=== PATIENT | female | born 1945 | race African-American/Black ===

== ENCOUNTER 2024-05-18 13:59 | Outpatient (AMB) | payer MEDICARE, MEDICAID, SELFPAY ==
--- NOTE | 2024-05-18 14:13 | HO.NEPHOV ---
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 She is not a diabetic but has history of coronary artery disease without any history of carotid stenosis, CVA, CHAVA or PND. Her blood pressure has been well controlled. She does not have any new bone or back pain. She has history of MARIANO in the past. She has a brother in [place] who has CKD. Her last serum creatinine was 1.57. She denies any nausea vomiting, diarrhea, pedal edema, dizziness, chest pain, shortness of breath, proximal nocturnal dyspnea or orthopnea. She denies taking any nonsteroidal anti-inflammatories. [facility] Medical History (Updated 05/18/24 @ 14:27 by Gus Fabian MD) Polycythemia Osteoarthritis WINDY (obstructive sleep apnea) Mixed anxiety and depressive disorder Hypothyroidism Essential (primary) hypertension Cor athrscl-uns vessel Cardiac murmur Acute ST segment elevation myocardial infarction Surgical History (Updated 05/18/24 @ 09:03 by Holli Walker MA) H/O hemorrhoidectomy Family History (Updated 05/18/24 @ 14:22 by Holli Walker MA) Mother Breast cancer Father Brain cancer Daughter Hypertension Son Hypertension Sister Hypertension Brother Hypertension Social History (Updated 05/18/24 @ 14:22 by Holli Walker MA) Alcohol intake: never Patient Tobacco Use Status: Former Tobacco user Use of substances other than those prescribed or required for medical reasons: No Review of Systems Const All systems reviewed & are unremarkable except as noted in HPI and below Physical Exam Vital Signs: Last Vital Signs Pulse 64 05/18/24 14:15 BP 124/70 05/18/24 14:15 Pulse Ox 98 05/18/24 14:15 Oxygen Delivery Method Room Air 05/18/24 14:15 BMI result Body Mass Index 34.6 Const General: comfortable and no acute distress Orientation/consciousness: patient oriented x3 HEENT Head: Yes normocephalic Mouth: Normal oral and palatal mucosa present Eyes EOM: EOMs intact bilaterally Neck Neck: Yes supple Resp Auscultation: clear to auscultation bilaterally Cardio Jugular venous distension: no JVD Rate: regular rate GI Palpation (GI): Soft to palpation Auscultation: normal bowel sounds General: Yes no CVA tenderness Back/Spine/Pelvis Back: no CVA tenderness Skin General skin exam: no rashes or lesions noted Neuro General: patient oriented x3 and moves all extremities Extrem General: Yes no pedal edema Results Reviewed Nephrology Results: No Data to Display Assessment & Plan Assessment & Plan (1) Renal artery stenosis, [place]: Code(s): I70.1 - Atherosclerosis of renal artery Category: Medical (2) Hypertension: Code(s): I10 - Essential (primary) hypertension Category: Medical Qualifiers: Hypertension type: renovascular hypertension Qualified Code(s): I15.0 - Renovascular hypertension (3) CKD stage 3a, GFR 45-59 ml/min: Code(s): N18.31 - Chronic kidney disease, stage 3a Category: Medical Plan Kidney has CKD stage 3 due to vascular disease. She has right renal artery stenosis by Doppler. Her blood pressure is at goal. Her serum creatinine is stable. She avoids nonsteroidal anti-inflammatories and maintain good hydration. She is on Farxiga. Her electrolytes are acceptable. She is on spironolactone. I plan to order Doppler of her renal arteries after next visit for follow-up of her renal artery stenosis. I did not make any medication changes today. All questions answered. Follow-up appointment given. Orders: Orders Electrolytes Today I15.0 - Renovascular hypertension, I70.1 - Atherosclerosis of renal artery, N18.31 - Chronic kidney disease, stage 3a Blood Urea Nitrogen Today I15.0 - Renovascular hypertension, I70.1 - Atherosclerosis of renal artery, N18.31 - Chronic kidney disease, stage 3a Calcium Today I15.0 - Renovascular hypertension, I70.1 - Atherosclerosis of renal artery, N18.31 - Chronic kidney disease, stage 3a Creatinine Today I15.0 - Renovascular hypertension, I70.1 - Atherosclerosis of renal artery, N18.31 - Chronic kidney disease, stage 3a Vitamin D 25-OH Total Today I15.0 - Renovascular hypertension, I70.1 - Atherosclerosis of renal artery, N18.31 - Chronic kidney disease, stage 3a Parathyroid Hormone Intact Today I15.0 - Renovascular hypertension, I70.1 - Atherosclerosis of renal artery, N18.31 - Chronic kidney disease, stage 3a Coding Level of Care Code Est Pt Level 4 (43768) Diagnoses Renal artery stenosis, [place] I70.1 Renovascular hypertension I15.0 Hypertension type: renovascular hypertension CKD stage 3a, GFR 45-59 ml/min N18.31
[2024-05-18 14:15] VITALS: BP 124/70; PULSE 64; O2SAT 98; BMI 34.6
== END 2024-05-18 14:52 | disposition home or self-care (01) ==
PROVIDERS: PCP Internal Medicine; Visit Provider Internal Medicine Nephrology
DX: I70.1 Atherosclerosis of renal artery (principal); I12.9 Hypertensive chronic kidney disease with stage 1 through stage 4 chronic kidney disease, or unspecified chronic kidney disease; N18.31 Chronic kidney disease, stage 3a
CPT/HCPCS: 99214

== ENCOUNTER → 2024-05-18 13:59 | Outpatient (BNVA) | payer MEDICARE, MEDICAID, SELFPAY | PROVIDERS: PCP Internal Medicine; Visit Provider Internal Medicine Nephrology | DX: I15.0 Renovascular hypertension (principal); I25.10 Atherosclerotic heart disease of native coronary artery without angina pectoris; I70.1 Atherosclerosis of renal artery; N18.31 Chronic kidney disease, stage 3a | CPT/HCPCS: 99212 ==

== ENCOUNTER 2024-09-09 13:32 | Outpatient (AMB) | payer MEDICARE, MEDICAID, SELFPAY ==
--- NOTE | 2024-09-09 13:49 | HO.NEPHOV ---
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 She is not a diabetic but has history of coronary artery disease without any history of carotid stenosis, CVA, CHAVA or PND. Her blood pressure is labile. She does not have any new bone or back pain. She has history of MARIANO in the past. She has a brother in [place] who has CKD. Her last serum creatinine was 1.57. She denies any nausea vomiting, diarrhea, pedal edema, dizziness, chest pain, shortness of breath, proximal nocturnal dyspnea or orthopnea. She denies taking any nonsteroidal anti-inflammatories. [facility] Medical History (Updated 07/02/24 @ 17:11 by Gus Fabian MD) Polycythemia Osteoarthritis WINDY (obstructive sleep apnea) Mixed anxiety and depressive disorder Hypothyroidism Essential (primary) hypertension Cor athrscl-uns vessel Cardiac murmur Acute ST segment elevation myocardial infarction Surgical History H/O hemorrhoidectomy Family History Mother Breast cancer Father Brain cancer Daughter Hypertension Son Hypertension Sister Hypertension Brother Hypertension Social History Alcohol intake: never Patient Tobacco Use Status: Former Tobacco user Review of Systems Const All systems reviewed & are unremarkable except as noted in HPI and below Physical Exam Vital Signs: Last Vital Signs Pulse 83 09/09/24 13:50 BP 160/90 H 09/09/24 13:50 Pulse Ox 99 09/09/24 13:50 Oxygen Delivery Method Room Air 09/09/24 13:50 BMI result Body Mass Index 35.9 Const General: comfortable and no acute distress Orientation/consciousness: patient oriented x3 HEENT Head: Yes normocephalic Mouth: Normal oral and palatal mucosa present Eyes EOM: EOMs intact bilaterally Neck Neck: Yes supple Resp Auscultation: clear to auscultation bilaterally Cardio Jugular venous distension: no JVD Rate: regular rate GI Palpation (GI): Soft to palpation Auscultation: normal bowel sounds General: Yes no CVA tenderness Back/Spine/Pelvis Back: no CVA tenderness Skin General skin exam: no rashes or lesions noted Neuro General: patient oriented x3 and moves all extremities Extrem General: Yes no pedal edema Results Reviewed Nephrology Results: No Data to Display Assessment & Plan Assessment & Plan (1) CKD stage 3a, GFR 45-59 ml/min: Code(s): N18.31 - Chronic kidney disease, stage 3a Category: Medical (2) Renovascular hypertension: Code(s): I15.0 - Renovascular hypertension Category: Medical (3) Renal artery stenosis, [place]: Code(s): I70.1 - Atherosclerosis of renal artery Category: Medical Plan Mary has CKD stage 3 due to vascular disease. She has right renal artery stenosis by Doppler. Her blood pressure is at labile. Her serum creatinine had been stable. She avoids nonsteroidal anti-inflammatories and maintain good hydration. She is on Farxiga. Her electrolytes are acceptable. She is on spironolactone. I plan to order Doppler of her renal arteries after next visit for follow-up of her renal artery stenosis. I did not make any medication changes today. All questions answered. Follow-up appointment given Orders: Orders Blood Urea Nitrogen 1 Month I15.0 - Renovascular hypertension, I70.1 - Atherosclerosis of renal artery, N18.31 - Chronic kidney disease, stage 3a Electrolytes 1 Month I15.0 - Renovascular hypertension, I70.1 - Atherosclerosis of renal artery, N18.31 - Chronic kidney disease, stage 3a Creatinine 1 Month I15.0 - Renovascular hypertension, I70.1 - Atherosclerosis of renal artery, N18.31 - Chronic kidney disease, stage 3a Coding Level of Care Code Est Pt Level 4 (21370) Diagnoses CKD stage 3a, GFR 45-59 ml/min N18.31 Renovascular hypertension I15.0 Renal artery stenosis, [place] I70.1
[2024-09-09 13:50] VITALS: BP 150/90; PULSE 83; O2SAT 99; BMI 35.9
== END 2024-09-09 14:23 | disposition home or self-care (01) ==
PROVIDERS: PCP Internal Medicine; Visit Provider Internal Medicine Nephrology
DX: I12.9 Hypertensive chronic kidney disease with stage 1 through stage 4 chronic kidney disease, or unspecified chronic kidney disease (principal); N18.31 Chronic kidney disease, stage 3a; I70.1 Atherosclerosis of renal artery
CPT/HCPCS: 99214

== ENCOUNTER → 2024-09-09 13:32 | Outpatient (BNVA) | payer MEDICARE, MEDICAID, SELFPAY | PROVIDERS: PCP Internal Medicine; Visit Provider Internal Medicine Nephrology | DX: I15.0 Renovascular hypertension (principal); N18.31 Chronic kidney disease, stage 3a; I70.1 Atherosclerosis of renal artery | CPT/HCPCS: 99212 ==

== ENCOUNTER 2024-10-07 13:31 | Outpatient (AMB) | payer MEDICARE, MEDICAID, SELFPAY ==
--- NOTE | 2024-10-07 13:39 | HO.NEPHOV_ITS ---
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 She is not a diabetic but has history of coronary artery disease without any history of carotid stenosis, CVA, CHAVA or PND. Her blood pressure is still labile, but better. She does not have any new bone or back pain. She has history of MARIANO in the past. She has a brother in [place] who has ? CKD. Her last serum creatinine has stable . She denies any nausea vomiting, diarrhea, pedal edema, dizziness, chest pain, shortness of breath, proximal nocturnal dyspnea or orthopnea. She denies taking any nonsteroidal anti-inflammatories. [facility] Medical History (Updated 07/02/24 @ 17:11 by Gus Fabian MD) Polycythemia Osteoarthritis WINDY (obstructive sleep apnea) Mixed anxiety and depressive disorder Hypothyroidism Essential (primary) hypertension Cor athrscl-uns vessel Cardiac murmur Acute ST segment elevation myocardial infarction Surgical History H/O hemorrhoidectomy Family History Mother Breast cancer Father Brain cancer Daughter Hypertension Son Hypertension Sister Hypertension Brother Hypertension Social History Alcohol intake: never Patient Tobacco Use Status: Former Tobacco user Review of Systems Const All systems reviewed & are unremarkable except as noted in HPI and below Physical Exam Vital Signs: Last Vital Signs Pulse 78 10/07/24 13:44 BP 180/90 H 10/07/24 13:44 Pulse Ox 97 10/07/24 13:44 Oxygen Delivery Method Room Air 10/07/24 13:44 BMI result Body Mass Index 35.7 Const General: comfortable and no acute distress Orientation/consciousness: patient oriented x3 HEENT Head: Yes normocephalic Mouth: Normal oral and palatal mucosa present Eyes EOM: EOMs intact bilaterally Neck Neck: Yes supple Resp Auscultation: clear to auscultation bilaterally Cardio Jugular venous distension: no JVD Rate: regular rate GI Palpation (GI): Soft to palpation Auscultation: normal bowel sounds General: Yes no CVA tenderness Back/Spine/Pelvis Back: no CVA tenderness Skin General skin exam: no rashes or lesions noted Neuro General: patient oriented x3 and moves all extremities Extrem General: Yes no pedal edema Results Reviewed Nephrology Results: No Data to Display Assessment & Plan Assessment & Plan (1) CKD stage 3a, GFR 45-59 ml/min: Code(s): N18.31 - Chronic kidney disease, stage 3a Category: Medical (2) Renovascular hypertension: Code(s): I15.0 - Renovascular hypertension Category: Medical Plan Mary has CKD stage 3 due to vascular disease. She has right renal artery stenosis by Doppler. Her blood pressure is at labile. Her serum creatinine had been stable. She avoids nonsteroidal anti-inflammatories and maintain good hydration. She is on Farxiga. Her electrolytes are acceptable. She is on spironolactone. I started her on Amlodipine 5 mg daily. ( She has CAD & had PC I). I ordered Doppler of her renal arteries to follow-up of her renal artery stenosis. I did not make any other medication changes today. All questions answered. Follow-up appointment given Orders: Orders US renal doppler 2 Months I15.0 - Renovascular hypertension Creatinine 3 Months I15.0 - Renovascular hypertension, N18.31 - Chronic kidney disease, stage 3a Electrolytes 3 Months I15.0 - Renovascular hypertension, N18.31 - Chronic kidney disease, stage 3a Blood Urea Nitrogen 3 Months I15.0 - Renovascular hypertension, N18.31 - Chronic kidney disease, stage 3a Medications: New amlodipine 5 mg PO DAILY 30 tabs 11RF Coding Level of Care Code Est Pt Level 4 (13977) Diagnoses CKD stage 3a, GFR 45-59 ml/min N18.31 Renovascular hypertension I15.0
[2024-10-07 13:44] VITALS: BP 140/90; PULSE 78; O2SAT 97; BMI 35.7
== END 2024-10-07 14:16 | disposition home or self-care (01) ==
PROVIDERS: PCP Internal Medicine; Visit Provider Internal Medicine Nephrology
DX: I12.9 Hypertensive chronic kidney disease with stage 1 through stage 4 chronic kidney disease, or unspecified chronic kidney disease (principal); N18.31 Chronic kidney disease, stage 3a
CPT/HCPCS: 99214

== ENCOUNTER → 2024-10-07 13:31 | Outpatient (BNVA) | payer MEDICARE, MEDICAID, SELFPAY | PROVIDERS: PCP Internal Medicine; Visit Provider Internal Medicine Nephrology | DX: I15.0 Renovascular hypertension (principal); N18.31 Chronic kidney disease, stage 3a | CPT/HCPCS: 99212 ==

== ENCOUNTER 2024-12-08 09:50 | Outpatient (REF) | payer MEDICARE, MEDICAID, SELFPAY ==
--- NOTE | ~2024-12-08 | US_ITS ---
CLINICAL HISTORY: I15.0 - Renovascular hypertension US renal duplex ultrasound Comparison: None Technique: Real time duplex ultrasound imaging was performed by the auto club safety program coordinator. Multiple provider service representative static images were saved for review. Findings: Aorta: 59 cm/s. Right kidney: Main renal artery peak systolic velocities: Proximal: 86 cm/s Mid: 90 cm/s Distal: 97 cm/s Renal to aortic ratio: 1.7 Left kidney: Main renal artery peak systolic velocities: Proximal: 70 to cm/s Mid: 90 cm/s Distal: 215 cm/s Renal to aortic ratio: 3.7 Bilateral renal veins patent. Impression: Severe left renal artery stenosis US renal Comparison: None Findings: Right kidney 10.7 cm length. Left kidney 10.2 cm length. Multiple bilateral renal cysts noted. Largest on right 3.2 cm upper pole. Largest on left 6.0 cm lower pole. No significant focal abnormality. No bilateral hydronephrosis. Normal bilateral renal echogenicity. Impression: No significant abnormalities. This document has been electronically signed by: Anson Guillen MD on 12/08/2024 21:25:12
--- OUTSIDE RECORDS SUMMARY | 2024-12-08 10:14 | XMS_ITS | Clinical Summary ---
Author Organization [facility] Address [address] [place] [address] Phone Care Team Providers Care Devil Tender Name Role Phone Chen Wan MD Primary Care Provider + Allergies Active Allergy Reactions Criticality Noted Date Comments Thiopental 11/15/2022 Medications aspirin (ST ELLIOTT) 81 MG EC tablet Take 81 mg by mouth 1 (one) time each day Active cyancobalamine (VITAMIN B-12) 250 MCG tablet Take 250 mcg by mouth 1 (one) time each day Active amLODIPine (NORVASC) 10 MG tablet Take 10 mg by mouth 1 (one) time each day Active amiodarone (PACERONE) 200 MG tablet Take 400 mg by mouth 1 (one) time each day Active atorvastatin (LIPITOR) 80 MG tablet Take 80 mg by mouth 1 (one) time each day Active hydroxyurea (HYDREA) 500 MG capsule Take by mouth 1 (one) time each day Take at the same time each day. Active levothyroxine (SYNTHROID, LEVOTHROID) 75 MCG tablet Take 75 mcg by mouth 1 (one) time each day Active loratadine (CLARITIN) 10 MG tablet Take 10 mg by mouth 1 (one) time each day Active metoprolol succinate XL (TOPROL-XL) 100 MG 24 hr tablet Take 150 mg by mouth 1 (one) time each day Do not crush or chew. Active nitroglycerin (NITROSTAT) 0.[address] 0.4 mg under the tongue every 5 (five) minutes if needed for chest pain Active pantoprazole (PROTONIX) 40 MG EC tablet Take 40 mg by mouth 1 (one) time each day before breakfast Do not crush, chew, or split. Active isosorbide mononitrate (IMDUR) 60 MG 24 hr tablet Take 60 mg by mouth 1 (one) time each day 3 Active D3 Super Strength 50 MCG (2000 UT) capsule Take 1 tablet by mouth 1 (one) time each day 3 Active Active Problems Problem Noted Date Diagnosed Date Cardiac murmur 01/24/2023 Coronary arteriosclerosis 01/24/2023 Stage 3b chronic kidney disease 12/24/2022 Hypertension 12/24/2022 Chronic kidney disease 11/15/2022 Resolved Problems Problem Noted Date Diagnosed Date Resolved Date Abnormal findings on diagnos tic imaging of breast 01/24/2023 01/24/2023 Hypothyroidism 01/24/2023 01/24/2023 Mixed anxiety and depressive disorder 01/24/2023 01/24/2023 Obstructive sleep apnea syndrome 01/24/2023 01/24/2023 Osteoarthritis 01/24/2023 01/24/2023 Polycythemia vera 01/24/2023 01/24/2023 Severe obesity 01/24/2023 01/24/[address] segment elevation m yocardial infarction 09/27/2015 01/24/2023 Immunizations Name Administration Dates Next Due DTaP 12/29/2017 Hep A, Unspecified 11/03/2018,09/02/2018 HiB 12/29/2017,06/26/2017,04/24/2017 ,01/21/2017 Influenza Whole 07/20/2020,11/03/2018,06/26/2017 Influenza, Unspecified 10/11/2022,08/21/2021,05/2021,08/11/2018 MMR 09/30/2017 Pfizer SARS-COV-2 08/21/2021,12/11/2020,11/20/19 21 Pneumococcal Conjugate 13-Valent 08/11/2018,09/0 04/2017,04/24/2017,01/21/2017 Pneumococcal Polysaccharide 02/19/2022 SARS-CoV-2, Unspecified 02/19/2022 Shingrix 07/01/2022 Tdap 10/11/2022 Social History Tobacco Use Types Packs/Day Years Used Date Smoking Tobacco: Never Smokeless Tobacco: Never Tobacco Cessation:Counseling Given: Not Answered Alcohol Use Standard Drinks/Week Comments Yes 0 (1 standard drink = 0.6 oz pur e alcohol) Comments Unknown Sex and Gender Information Value Date Recorded Sex Assigned at Not on file Legal Sex Female 10:06 AM EST Gender Identity Not on file Sexual Orientation Not on file Last Filed Vital Signs Vital Sign Reading Time Taken Comments Blood Pressure 130/60 01/27/2023 1:52 PM EDT Pulse 52 01/27/2023 1:52 PM EDT Temperature - - Respiratory Rate - - Oxygen Saturation - - Inhaled Oxygen Concentration - - Weight 93 kg (205 lb) 01/27/2023 1:52 PM EDT Height - - Body Mass Index - - Plan of Treatment Health Maintenance Due Date Last Done Comments Influenza Vaccine (#1) 2024 , 08/21/2021, 07/27/2021, Additional history exists Pneumococcal Vaccine: 65+ Years Completed 02/19/2022, 08/11/2018, 06/26/2017, Additional history exists Hepatitis B Vaccine Aged Out No longe r eligible based on patient's age to complete this topic Insurance [place] Care Teams Devil Tender Relationship Specialty Start Date End Date Chen Wan MD [facility] [address], [place] PCP - General Internal Medicine 08/28/22
== END 2024-12-08 09:51 | disposition home or self-care (01) ==
LOC: HO.US 09:50
PROVIDERS: PCP Internal Medicine; Visit Provider Internal Medicine Nephrology
DX: I15.0 Renovascular hypertension (principal)
CPT/HCPCS: 93975

== ENCOUNTER → 2024-12-08 09:52 | Outpatient (BNV) | payer MEDICARE, MEDICAID, SELFPAY | PROVIDERS: PCP Internal Medicine; Visit Provider Radiology Diagnostic Radiology | DX: I15.0 Renovascular hypertension (principal) | CPT/HCPCS: 93975 ==

== ENCOUNTER 2025-01-06 12:55 | Outpatient (AMB) | payer MEDICARE, MEDICAID, SELFPAY ==
--- NOTE | 2025-01-06 13:31 | HO.NEPHOV_ITS ---
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 She is not a diabetic but has history of coronary artery disease without any history of carotid stenosis, CVA, CHAVA or PND. Her blood pressure is still labile, but better. She does not have any new bone or back pain. She has history of MARIANO in the past. She has a brother in [place] who has ? CKD. Her last serum creatinine has stable . She denies any nausea vomiting, diarrhea, pedal edema, dizziness, chest pain, shortness of breath, proximal nocturnal dyspnea or orthopnea. She denies taking any nonsteroidal anti-inflammatories. [facility] Medical History (Updated 07/02/24 @ 17:11 by Gus Fabian MD) Polycythemia Osteoarthritis WINDY (obstructive sleep apnea) Mixed anxiety and depressive disorder Hypothyroidism Essential (primary) hypertension Cor athrscl-uns vessel Cardiac murmur Acute ST segment elevation myocardial infarction Surgical History H/O hemorrhoidectomy Family History Mother Breast cancer Father Brain cancer Daughter Hypertension Son Hypertension Sister Hypertension Brother Hypertension Social History Alcohol intake: never Patient Tobacco Use Status: Former Tobacco user Review of Systems Const All systems reviewed & are unremarkable except as noted in HPI and below Physical Exam Vital Signs: Last Vital Signs Pulse 82 01/06/25 13:32 BP 138/80 01/06/25 13:32 Pulse Ox 98 01/06/25 13:32 Oxygen Delivery Method Room Air 01/06/25 13:32 BMI result Body Mass Index 32.1 Const General: comfortable and no acute distress Orientation/consciousness: patient oriented x3 HEENT Head: Yes normocephalic Mouth: Normal oral and palatal mucosa present Eyes EOM: EOMs intact bilaterally Neck Neck: Yes supple Resp Auscultation: clear to auscultation bilaterally Cardio Jugular venous distension: no JVD Rate: regular rate GI Palpation (GI): Soft to palpation Auscultation: normal bowel sounds General: Yes no CVA tenderness Back/Spine/Pelvis Back: no CVA tenderness Skin General skin exam: no rashes or lesions noted Neuro General: patient oriented x3 and moves all extremities Extrem General: Yes no pedal edema Results Reviewed Nephrology Results: Renal US 12/08/24 Assessment & Plan Assessment & Plan (1) CKD stage 3a, GFR 45-59 ml/min: Code(s): N18.31 - Chronic kidney disease, stage 3a Category: Medical (2) Renovascular hypertension: Code(s): I15.0 - Renovascular hypertension Category: Medical (3) Renal artery stenosis, [place]: Code(s): I70.1 - Atherosclerosis of renal artery Category: Medical (4) Hypertension: Code(s): I10 - Essential (primary) hypertension Category: Medical Qualifiers: Hypertension type: renovascular hypertension Qualified Code(s): I15.0 - Renovascular hypertension Plan Mary has CKD stage 3 due to vascular disease. She has left renal artery stenosis by Doppler. Her blood pressure is at labile. Her serum creatinine had been stable. She avoids nonsteroidal anti-inflammatories and maintain good hydration. She is on Farxiga. Her electrolytes are acceptable. She is on spironolactone. I increased her Amlodipine to 7.5 mg daily. ( She has CAD & had PCI). I did not make any other medication changes today. All questions answered. Follow-up appointment given Orders: Orders Electrolytes Today I15.0 - Renovascular hypertension, I70.1 - Atherosclerosis of renal artery, N18.31 - Chronic kidney disease, stage 3a Blood Urea Nitrogen 3 Months I15.0 - Renovascular hypertension, I70.1 - Atherosclerosis of renal artery, N18.31 - Chronic kidney disease, stage 3a Creatinine 3 Months I15.0 - Renovascular hypertension, I70.1 - Atherosclerosis of renal artery, N18.31 - Chronic kidney disease, stage 3a Creatinine Today I15.0 - Renovascular hypertension, I70.1 - Atherosclerosis of renal artery, N18.31 - Chronic kidney disease, stage 3a Blood Urea Nitrogen Today I15.0 - Renovascular hypertension, I70.1 - Atherosclerosis of renal artery, N18.31 - Chronic kidney disease, stage 3a Electrolytes 3 Months I15.0 - Renovascular hypertension, I70.1 - Atherosclerosis of renal artery, N18.31 - Chronic kidney disease, stage 3a Medications: Changed From amlodipine 5 mg PO DAILY 30 tabs 11RF To amlodipine 7.5 mg (1.5 x 5 mg) PO DAILY 30 tabs 11RF Coding Level of Care Code Est Pt Level 4 (90564) Diagnoses CKD stage 3a, GFR 45-59 ml/min N18.31 Renovascular hypertension I15.0 Renal artery stenosis, [place] I70.1 Renovascular hypertension I15.0 Hypertension type: renovascular hypertension
[2025-01-06 13:32] VITALS: BP 138/80; PULSE 82; O2SAT 98; BMI 32.1
== END 2025-01-06 14:21 | disposition home or self-care (01) ==
LOC: HO.HKAS 12:55
PROVIDERS: PCP Internal Medicine; Visit Provider Internal Medicine Nephrology
DX: I12.9 Hypertensive chronic kidney disease with stage 1 through stage 4 chronic kidney disease, or unspecified chronic kidney disease (principal); N18.31 Chronic kidney disease, stage 3a; I70.1 Atherosclerosis of renal artery
CPT/HCPCS: 99214

== ENCOUNTER 2025-01-06 12:55 | Outpatient (REF) | payer MEDICARE, MEDICAID, SELFPAY ==
[2025-01-06 18:35] LABS: Anion Gap 13 (12-20); Blood Urea Nitrogen 15 mg/dL (9-16); Carbon Dioxide 25 mmol/L (22-29); Chloride 110 mmol/L (96-108); Estimated Glomerular Filt Rate 46; Potassium 4.1 mmol/L (3.3-5.1); Sodium 144 mmol/L (135-145)
== END 2025-01-06 12:56 | disposition home or self-care (01) ==
LOC: HO.HKASLDS 12:55
PROVIDERS: PCP Internal Medicine; Visit Provider Internal Medicine Nephrology
DX: I15.0 Renovascular hypertension (principal); N18.31 Chronic kidney disease, stage 3a; I70.1 Atherosclerosis of renal artery
CPT/HCPCS: 36415; 80051; 82565; 84520; 99212

== ENCOUNTER 2025-04-05 10:56 | Outpatient (REF) | payer MEDICARE, MEDICAID, SELFPAY ==
--- OUTSIDE RECORDS SUMMARY | 2025-04-05 12:27 | XMS_ITS | Clinical Summary ---
Author Organization [facility] Address [address] [place] [address] Phone Care Team Providers Care Loan Workout Officer Name Role Phone Chen Wan MD Primary [...] elevation m yocardial infarction 09/27/2015 01/24/2023 Immunizations Immunization Administration Dates Next Due DTaP 12/29/2017 Hep [...] Due Date Last Done Comments Influenza Vaccine (Season Ended) 2025 10/11/2022, 08/21/2021, 07/27/2021, Additional history exists Pneumococcal Vaccine: 50+ Years Completed 02/19/2022, 08/11/2018, 06/26/2017, Additional history exists Hepatitis B Vaccine Aged Out No longe r eligible based on patient's age to complete this topic Insurance Medicare Medicaid [place] Medicare Medicaid [place] Care Teams Loan Workout Officer Relationship Specialty Start Date End Date Chen Wan MD [facility] [address] [place], [place] PCP - General Internal Medicine 08/28/22
[2025-04-05 17:58] LABS: Anion Gap 11 (12-20); Blood Urea Nitrogen 19 mg/dL (9-16); Carbon Dioxide 28 mmol/L (22-29); Chloride 109 mmol/L (96-108); Estimated Glomerular Filt Rate 43; Potassium 4.5 mmol/L (3.3-5.1); Sodium 143 mmol/L (135-145)
== END 2025-04-05 10:57 | disposition home or self-care (01) ==
LOC: HO.HKASLDS 10:56
PROVIDERS: Visit Provider Internal Medicine Nephrology
DX: I15.0 Renovascular hypertension (principal); N18.31 Chronic kidney disease, stage 3a; I70.1 Atherosclerosis of renal artery
CPT/HCPCS: 36415; 80051; 82565; 84520

== ENCOUNTER 2025-04-07 14:46 | Outpatient (AMB) | payer MEDICARE, MEDICAID, SELFPAY ==
[2025-04-07 15:08] VITALS: BP 170/74; PULSE 93; O2SAT 97; BMI 33.7
--- NOTE | 2025-04-07 15:08 | HO.NEPHOV_ITS ---
Vital Signs 04/07/25 15:08 Height 5 ft 2 in Weight 184 lb 8 oz BMI 33.7 BP 170/74 H Blood Pressure Location Lt brachial Position Sitting Pulse 93 Pulse Source Pulse Oximeter Pulse Oximetry (%) 97 Oxygen Delivery Method Room Air Intake Visit Reasons: 3mon follow-up w/labs-LVM Assistant Branch Manager Required: No Accompanied by: Self / Same As Patient Allergies thiopental Allergy (Verified 04/07/25 15:08) Unknown HPI Comments Details: Mary in follow-up of her chronic kidney disease and hypertension. She is not a diabetic but has history of coronary artery disease without any history of carotid stenosis, CVA, CHAVA or PND. Her blood pressure is still labile, but better. She does not have any new bone or back pain. She has history of MARIANO in the past. She has a brother in [place] who has ? CKD. Her last serum creatinine has been stable . She denies any nausea vomiting, diarrhea, pedal edema, dizziness, chest pain, shortness of breath, proximal nocturnal dyspnea or orthopnea. She denies taking any nonsteroidal anti-inflammatories. [facility] Medical History (Updated 07/02/24 @ 17:11 by Gus Fabian MD) Polycythemia Osteoarthritis WINDY (obstructive sleep apnea) Mixed anxiety and depressive disorder Hypothyroidism Essential (primary) hypertension Cor athrscl-uns vessel Cardiac murmur Acute ST segment elevation myocardial infarction Surgical History H/O hemorrhoidectomy Family History Mother Breast cancer Father Brain cancer Daughter Hypertension Son Hypertension Sister Hypertension Brother Hypertension Social History Alcohol intake: never Patient Tobacco Use Status: Former Tobacco user Review of Systems Const All systems reviewed & are unremarkable except as noted in HPI and below Physical Exam Vital Signs: Last Vital Signs Pulse 93 04/07/25 15:08 BP 170/74 H 04/07/25 15:08 Pulse Ox 97 04/07/25 15:08 Oxygen Delivery Method Room Air 04/07/25 15:08 BMI result Body Mass Index 33.7 Const General: comfortable and no acute distress Orientation/consciousness: patient oriented x3 HEENT Head: Yes normocephalic Mouth: Normal oral and palatal mucosa present Eyes EOM: EOMs intact bilaterally Neck Neck: Yes supple Resp Auscultation: clear to auscultation bilaterally Cardio Jugular venous distension: no JVD Rate: regular rate GI Palpation (GI): Soft to palpation Auscultation: normal bowel sounds General: Yes no CVA tenderness Back/Spine/Pelvis Back: no CVA tenderness Skin General skin exam: no rashes or lesions noted Neuro General: patient oriented x3 and moves all extremities Extrem General: Yes no pedal edema Results Reviewed Nephrology Results: Sodium, (135-145) 143 mmol/L 04/05/25 Potassium, (3.3-5.1) 4.5 mmol/L 04/05/25 Chloride, (96-108) 109 mmol/L H 04/05/25 Carbon Dioxide, (22-29) 28 mmol/L 04/05/25 BUN, (9-16) 19 mg/dL H 04/05/25 Creatinine, (0.5-1.4) 1.21 mg/dL 04/05/25 Renal US 12/08/24 Assessment & Plan Assessment & Plan (1) Hypertension: Code(s): I10 - Essential (primary) hypertension Category: Medical Qualifiers: Hypertension type: renovascular hypertension Qualified Code(s): I15.0 - Renovascular hypertension (2) CKD stage 3a, GFR 45-59 ml/min: Code(s): N18.31 - Chronic kidney disease, stage 3a Category: Medical (3) Renovascular hypertension: Code(s): I15.0 - Renovascular hypertension Category: Medical (4) Renal artery stenosis, [place]: Code(s): I70.1 - Atherosclerosis of renal artery Category: Medical Plan Mary has CKD stage 3 due to vascular disease. She has left renal artery stenosis by Doppler. Her blood pressure is at labile. Her serum creatinine had been stable. She avoids nonsteroidal anti-inflammatories and maintain good hydration. She is on Farxiga. Her electrolytes are acceptable. She is on spironolactone. I started her on Imdur 30 mg daily. ( She has CAD & had PCI). I did not make any other medication changes today. All questions answered. Follow-up appointment given Medications: New isosorbide mononitrate ER 30 mg PO DAILY 30 tabs 3RF Coding Level of Care Code Est Pt Level 4 (48734) Diagnoses Renovascular hypertension I15.0 Hypertension type: renovascular hypertension CKD stage 3a, GFR 45-59 ml/min N18.31 Renovascular hypertension I15.0 Renal artery stenosis, [place] I70.1
--- OUTSIDE RECORDS SUMMARY | 2025-04-07 16:03 | XMS_ITS | Clinical Summary ---
Author Organization [facility] Address [address] [place] [address] Phone Care Team Providers Care Editor Name Role Phone Chen Wan MD Primary [...] Medicaid [place] Medicare Medicaid [place] Care Teams Editor Relationship Specialty Start Date End Date Chen Wan MD [facility] [address] [place], [place] PCP - General Internal Medicine 08/28/22
== END 2025-04-07 15:33 | disposition home or self-care (01) ==
PROVIDERS: PCP Internal Medicine; Visit Provider Internal Medicine Nephrology
DX: I12.9 Hypertensive chronic kidney disease with stage 1 through stage 4 chronic kidney disease, or unspecified chronic kidney disease (principal); N18.31 Chronic kidney disease, stage 3a; I70.1 Atherosclerosis of renal artery
CPT/HCPCS: 99214

== ENCOUNTER → 2025-04-07 14:46 | Outpatient (BNVA) | payer MEDICARE, MEDICAID, SELFPAY | PROVIDERS: PCP Internal Medicine; Visit Provider Internal Medicine Nephrology | DX: I15.0 Renovascular hypertension (principal); N18.31 Chronic kidney disease, stage 3a; I70.1 Atherosclerosis of renal artery | CPT/HCPCS: 99212 ==